=== PATIENT | male | born 1950 | race Caucasian/White ===

== ENCOUNTER → 2016-06-10 | Outpatient (CLI) | payer BC ==
--- NOTE | 2016-06-10 12:01 | XR ---
EXAMINATION TYPE: XR chest 2V DATE OF EXAM: 06/10/2016 11:52 AM COMPARISON: 09/27/10 HISTORY: Shortness of breath TECHNIQUE: Frontal and lateral views of the chest are obtained. FINDINGS: Scattered senescent parenchymal changes noted. Hyperinflation compatible with COPD. No evidence for infiltrate. No evidence for atelectasis. Heart size is stable. Mediastinal structures are stable and grossly unremarkable. No evidence for hilar prominence. Degenerative changes dorsal spine. IMPRESSION: 1. No evidence for acute pulmonary disease.
== END | disposition home or self-care (01) ==
LOC: RADXRMAIN 11:40
PROVIDERS: ATTEND Family Medicine
DX: J44.9 Chronic obstructive pulmonary disease, unspecified (principal)
CPT/HCPCS: 71020

== ENCOUNTER 2018-07-13 07:47 | Day surgery (SDC) | payer MEDICARE, OTHER ==
[2018-07-09 11:39] VITALS: BMI 28.1
[~2018-07-13 07:47] MED LIST: DEXAMETHASONE SOD PHOSPHATE 10 MG/ML 1 ML VIAL IV ONE; HEPARIN SODIUM,PORCINE 5,000 UNIT/ML 1 ML VIAL SQ ONE; LACTATED RINGERS 1,000 ML IV SCH; LIDOCAINE 1% 20 ML VIAL (10MG/ML) FOR IV START INTRADERMA PRN; MIDAZOLAM (PF) 2 MG/2 ML VIAL IV PRN; ceFAZolin IN SWFI 2 GM/20 ML SYRINGE IVP ONE; fentaNYL (PF) 50 MCG/ML 2 ML AMP IV PRN
[2018-07-13 08:29] LABS: Glucose,Whole Blood 102 mg/dL (75-99)
[2018-07-13] MEDS ORDERED: ONDANSETRON 4 MG/2 ML VIAL IVP ONE (08:30)
[2018-07-13] MEDS ORDERED: DEXAMETHASONE SOD PHOSPHATE 10 MG/ML 1 ML VIAL IV ONE (08:31)
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
[2018-07-13] MEDS ORDERED: fentaNYL (PF) 50 MCG/ML 2 ML AMP ONE (09:24)
[2018-07-13] MEDS ORDERED: LIDOCAINE 1% INJ 10MG/ML (20 ML MDV) ONE (09:24)
[2018-07-13] MEDS ORDERED: KETOROLAC 30 MG/ML 1 ML VIAL ONE (09:24)
[2018-07-13] MEDS ORDERED: PROPOFOL 10 MG/ML 20 ML VIAL IV ONE (09:24)
[2018-07-13] MEDS ORDERED: ROCURONIUM BROMIDE 10 MG/ML 10 ML VIAL IV ONE (09:24)
[2018-07-13] MEDS ORDERED: MIDAZOLAM 2 MG/2 ML VIAL ONE (09:24)
[2018-07-13] MEDS ORDERED: NEOSTIGMINE 1 MG/ML 10 ML VIAL ONE (09:24)
[2018-07-13] MEDS ORDERED: SUCCINYLCHOLINE CHLORIDE 100 MG/5 ML SYR IV ONE (09:24)
[2018-07-13] MEDS ORDERED: GLYCOPYRROLATE 0.2 MG/ML 2 ML VIAL ONE (09:24)
[2018-07-13] MEDS ORDERED: BUPIVACAIN-EPI 0.5%-1:200,000 30 ML VIAL SQ ONE (09:51)
[2018-07-13] MEDS ORDERED: LACTATED RINGERS 1,000 ML IV ONE (09:59)
--- NOTE | 2018-07-13 10:28 | P.OP ---
Date of Procedure: 07/13/18 Preoperative Diagnosis: Cholecystitis Cholelithiasis Postoperative Diagnosis: Cholecystitis Cholelithiasis Procedure(s) Performed: Laparoscopic cholecystectomy Anesthesia: MAHAMED Surgeon: Sajan Chandler Estimated Blood Loss (ml): 5 Pathology: other (Gallbladder) Condition: stable Disposition: PACU Description of Procedure: The patient was placed on the operating table. The patient received a general endotracheal tube anesthesia. The patients abdomen was prepped and draped in the usual sterile fashion. Through an infraumbilical stab incision, the fascia of the anterior abdominal wall was grasped with a pair of Kochers and then the Veress needle was placed in the peritoneal cavity. Position of the Veress needle was confirmed with positive drop test. The abdomen was then insufflated. After adequate insufflation, the 10 mm trocar was placed in the peritoneal cavity. Following this the laparoscope was placed in the peritoneal cavity. The patient was placed in the head-up, right side up position and then a 5 mm trocar was placed in the right lateral and right subcostal position under direct visualization. A 8 mm trocar was placed in the epigastric position. The gallbladder was grasped in the fundus and infundibulum. Traction on the gallbladder was placed in the lateral and the cephalad positions. The triangle of Calot was visualized.. The cystic duct was bluntly dissected until the union of the cystic duct and common bile duct was seen. The cystic duct was then divided and sealed with the Harmonic scissors. A PDS Endoloop was then placed throughout the cystic duct stump. The cystic artery divided and sealed with the Harmonic scissors. The gallbladder was then removed from the liver bed using Harmonic scissors. The gallbladder was then extracted through the epigastric port site. Operative field was checked for any bleeding spots and Harmonic scissors was used to coagulate the liver bed. The abdomen was irrigated. The trocars were removed. The skin was closed using interrupted 3-0 Vicryl suture. Dermabond dressing were applied. The patient tolerated the procedure well.
[2018-07-13 10:29] VITALS: TEMP 97.6
[2018-07-13 12:10] VITALS: BP 111/76; PULSE 81; RESP 16
== END 2018-07-13 12:35 | disposition home or self-care (01) ==
LOC: OR 07:47
PROVIDERS: ATTEND Surgery
DX: K80.10 Calculus of gallbladder with chronic cholecystitis without obstruction (principal); K21.9 Gastro-esophageal reflux disease without esophagitis; M19.90 Unspecified osteoarthritis, unspecified site; E07.9 Disorder of thyroid, unspecified; R73.03 Prediabetes; N40.0 Benign prostatic hyperplasia without lower urinary tract symptoms; F39 Unspecified mood [affective] disorder; Z79.890 Hormone replacement therapy; Z79.899 Other long term (current) drug therapy; Z88.5 Allergy status to narcotic agent; Z87.442 Personal history of urinary calculi; Z87.891 Personal history of nicotine dependence
CPT/HCPCS: 88304; 47562; J2250; J1644; J1100; J2710; J2405; J2001; J3010; J1885; J0330; J2704; J0690

== ENCOUNTER 2019-11-27 11:22 | Inpatient (IN) | payer MEDICARE ==
[2019-11-27] MEDS ORDERED: SODIUM CHLORIDE 0.9% 500 ML 500 ML IV STA (11:48)
[2019-11-27] MEDS ORDERED: MORPHINE SULFATE 4 MG/ML SYRINGE IV STA (11:48)
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
[2019-11-27 12:04] LABS: Basophils % (A) 0 %; Eosinophils # (A) 0.4 k/uL (0-0.7); Eosinophils % (A) 4 %; HCT 42.9 % (39.0-53.0); HGB 13.4 gm/dL (13.0-17.5); Lymphocytes # (A) 1.4 k/uL (1.0-4.8); Lymphocytes % (A) 12 %; MCH 28.6 pg (25.0-35.0); MCHC 31.2 g/dL (31.0-37.0); MCV 91.9 fL (80.0-100.0); Mean Platelet Volume 7.7; Monocytes # (A) 0.5 k/uL (0-1.0); Monocytes % (A) 4 %; Neutrophils # (A) 9.2 k/uL (1.3-7.7); Neutrophils % (A) 79 %; Platelet Count 260 k/uL (150-450); RBC 4.67 m/uL (4.30-5.90); RDW 12.5 % (11.5-15.5); WBC 11.7 k/uL (3.8-10.6)
[2019-11-27 12:07] LABS: Appearance,Urine Clear (Clear); Bilirubin,Urine Negative (Negative); Blood,Urine Negative (Negative); Color,Urine Yellow; Glucose,Urine (UA) Negative (Negative); Hyaline Casts,Urine 1 /lpf (0-2); Ketones,Urine Negative (Negative); Leukocyte Esterase,Urine Moderate (Negative); Mucus,Urine Rare /hpf; Nitrite,Urine Negative (Negative); PH, Urine 5.5 (5.0-8.0); Protein,Urine Negative (Negative); RBC,Urine 2 /hpf (0-5); Specific Gravity,Urine 1.026 (1.001-1.035); Squamous Epithelial Cell,Urine <1 /hpf (0-4); Urobilinogen,Urine <2.0 mg/dL (<2.0); WBC,Urine 9 /hpf (0-5)
--- NOTE | 2019-11-27 12:12 | XR ---
EXAMINATION TYPE: XR KUB DATE OF EXAM: 11/27/2019 COMPARISON: NONE HISTORY: Pain TECHNIQUE: Single supine KUB image of the abdomen is obtained FINDINGS: Mild small bowel distention which may reflect ileus. Air is seen throughout the colon to the rectosig moid level. Gas and fecal material is seen in non-distended colon. No convincing evidence for pneumoperitoneum. Static calcifications are identified. The lung bases are clear. The osseous structures are intact. IMPRESSION: 1. Overall nonobstructive bowel gas pattern.
[2019-11-27 12:17] LABS: ALT 13 U/L (4-49); AST 19 U/L (17-59); African American GFR (CKD) >90 (>60 ml/min/1.73 sqM); Albumin 3.8 g/dL (3.5-5.0); Alkaline Phosphatase 56 U/L (38-126); Amylase 49 U/L (30-110); Anion Gap 7 mmol/L; Blood Urea Nitrogen 21 mg/dL (9-20); Calcium 9.4 mg/dL (8.4-10.2); Carbon Dioxide 24 mmol/L (22-30); Chloride 105 mmol/L (98-107); Glucose 135 mg/dL (74-99); Non-African American GFR(CKD) 81 (>60 ml/min/1.73 sqM); Potassium 4.5 mmol/L (3.5-5.1); Sodium 136 mmol/L (137-145); Total Bilirubin 0.6 mg/dL (0.2-1.3); Total Protein 6.5 g/dL (6.3-8.2)
[2019-11-27 12:18] LABS: INR 0.9 (<1.2); Partial Thromboplastin Time 25.4 sec (22.0-30.0); Prothrombin Time 9.9 sec (9.0-12.0)
[2019-11-27] MEDS ORDERED: HYDROmorphone 1 MG/ML 1 ML SYRINGE IVP STA (12:39)
[2019-11-27] MEDS ORDERED: HYDROmorphone 0.5 MG/0.5 ML SYRINGE IVP STA (13:20)
--- NOTE | 2019-11-27 13:24 | CT ---
EXAMINATION TYPE: CT abdomen pelvis w con DATE OF EXAM: 11/27/2019 COMPARISON: HISTORY: mid abd pain CT DLP: 1073.6 mGycm CONTRAST: CT scan of the abdomen and pelvis is performed without Oral Contrast and with IV Contrast, patient in jected with 100 mL of Isovue 300. FINDINGS: LUNG BASES-: No visible nodule. No infiltrate. Small sliding-type hiatal hernia. LIVER/GB: Cholecystectomy clips are in place. No space occupying hepatic lesion. Biliary tree is o f normal caliber. PANCREAS: Inflammatory change suggested about the pancreatic head. Correlate for mild pancreatitis. SPLEEN: No splenic enlargement. No lesion seen. ADRENALS: No nodule. No thickening. KIDNEYS/BLADDER: No hydronephrosis. No nephrolithiasis. Renal cystic changes noted. Urinary bladder grossly unremarkable. BOWEL: Normal appendix. Normal bowel caliber. No inflammation. GENITAL ORGANS: No gross abnormality. LYMPH NODES: No greater than 1cm abdominal or pelvic lymph nodes are appreciated. AORTA: No significant abnormality. OSSEOUS STRUCTURES: No significant abnormality is seen. OTHER: No significant additional abnormality is seen. IMPRESSION: 1. Findings felt to reflect mild pancreatitis. Correlate with amylase and lipase.
[2019-11-27] MEDS ORDERED: ONDANSETRON 4 MG/2 ML VIAL IVP PRN (14:15)
[2019-11-27] MEDS ORDERED: NALOXONE 0.4 MG/ML 1 ML VIAL IV PRN (14:15)
[2019-11-27] MEDS ORDERED: PANTOPRAZOLE 40 MG/10 ML VIAL IVP STA (14:41)
[2019-11-27] MEDS: SODIUM CHLORIDE 0.9% 1,000 ML IV SCH (15:55)
[2019-11-27] MEDS: HYDROmorphone 0.5 MG/0.5 ML SYRINGE IVP PRN ×2 (18:26→21:11)
[2019-11-28] MEDS: SODIUM CHLORIDE 0.9% 1,000 ML IV SCH ×3 (00:12→16:46)
[2019-11-28] MEDS: HYDROmorphone 0.5 MG/0.5 ML SYRINGE IVP PRN (01:00)
[2019-11-28] MEDS: LEVOTHYROXINE 100 MCG TAB PO SCH (05:48)
[2019-11-28 07:28] LABS: Basophils % (A) 0 %; Eosinophils # (A) 0.2 k/uL (0-0.7); Eosinophils % (A) 2 %; HCT 38.2 % (39.0-53.0); HGB 12.8 gm/dL (13.0-17.5); Lymphocytes # (A) 1.3 k/uL (1.0-4.8); Lymphocytes % (A) 11 %; MCH 30.7 pg (25.0-35.0); MCHC 33.4 g/dL (31.0-37.0); MCV 91.9 fL (80.0-100.0); Mean Platelet Volume 8.1; Monocytes # (A) 0.7 k/uL (0-1.0); Monocytes % (A) 6 %; Neutrophils # (A) 9.1 k/uL (1.3-7.7); Neutrophils % (A) 79 %; Platelet Count 233 k/uL (150-450); RBC 4.16 m/uL (4.30-5.90); RDW 12.7 % (11.5-15.5); WBC 11.6 k/uL (3.8-10.6)
[2019-11-28] MEDS ORDERED: PANTOPRAZOLE 40 MG TABLET PO SCH (07:30)
[2019-11-28] MEDS: PANTOPRAZOLE 40 MG TABLET PO SCH (07:40)
[2019-11-28] MEDS: TAMSULOSIN 0.4 MG CAP.ER.24H PO SCH (07:40)
[2019-11-28 07:44] LABS: ALT 12 U/L (4-49); AST 17 U/L (17-59); African American GFR (CKD) >90 (>60 ml/min/1.73 sqM); Albumin 3.1 g/dL (3.5-5.0); Alkaline Phosphatase 58 U/L (38-126); Amylase 35 U/L (30-110); Anion Gap 4 mmol/L; Blood Urea Nitrogen 15 mg/dL (9-20); Calcium 8.2 mg/dL (8.4-10.2); Carbon Dioxide 27 mmol/L (22-30); Chloride 104 mmol/L (98-107); Glucose 98 mg/dL (74-99); Non-African American GFR(CKD) 84 (>60 ml/min/1.73 sqM); Potassium 4.7 mmol/L (3.5-5.1); Sodium 135 mmol/L (137-145); Total Bilirubin 0.9 mg/dL (0.2-1.3); Total Protein 5.3 g/dL (6.3-8.2)
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
--- NOTE | 2019-11-28 10:01 | US ---
EXAMINATION TYPE: US abdomen complete DATE OF EXAM: 11/28/2019 COMPARISON: CT 11/27/2019 CLINICAL HISTORY: abd. pain. GB removed x many years ago. Patient states having pancreatitis EXAM MEASUREMENTS: Liver Length: 13.3 cm CBD: 0.9 cm Spleen: 10.3 cm Right Kidney: 9.6 x 4.3 x 4.5 cm Left Kidney: 10.7 x 4.8 x 5.8 cm Pancreas: Echogenic in appearance. Tail obscured by overlying bowel gas Liver: Limited visualization, scanned intercostally due to bowel gas there is a coarse echotexture Gallbladder: Surgically absent Evidence for sonographic Connolly's sign: neg CBD: wnl Spleen: wnl Right Kidney: Lower lateral pole cystic lesion - 1.6 x 1.9 x 1.6 cm Left Kidney: Two cystic lesions seen. 1- mid anterior = 1.5 x 1.5 x 1.5 cm. 2- lower = 1.5 x 1.4 x 1.4 cm Upper IVC: wnl Abd Aorta: Portions obscured by overlying bowel gas. No AAA visualized. There is no ascites. IMPRESSION: Abnormal findings seen on CT are not seen on current ultrasound. Correlate for possible h epatic steatosis. Dilated common bile duct likely due to postcholecystectomy change. There are cortic al cysts associated with the kidneys.
--- NOTE | 2019-11-28 10:03 | CONS ---
CONSULTATION DATE OF CONSULTATION: 11/28/2019 REQUESTING PHYSICIAN: Dr. Gomez. REASON FOR CONSULTATION: Diffuse abdominal pain. HISTORY OF PRESENT ILLNESS: The patient is a 69-year-old pleasant white male who came to the emergency room complaining of severe right-sided abdominal pain that started yesterday morning. The pain continued to progressively get worse and radiated diffusely all over the abdomen, mostly in the periumbilical area and epigastric area radiating to the lower abdominal area. He had some nausea but no emesis. No significant change in his bowel habits. No fever, chills, or night sweats. Never had these symptoms in the past. He came to the emergency room, had a CT of the abdomen and pelvis done that showed mild inflammation in the pancreas. The patient never had prior history of pancreatitis. He has longstanding history of GERD and has been on Prilosec 20 mg daily. He has been taking Motrin every night for arthritis. No prior history of peptic ulcer disease. Last colonoscopy was more than 7 years ago and according to the patient was normal. PAST MEDICAL HISTORY: Anxiety, GERD, hypothyroidism. PAST SURGICAL HISTORY: Cholecystectomy, hernia repair, colonoscopy about 7 years ago. MEDICATIONS: Medications at home include Flomax, Prilosec, Xanax, levothyroxine. ALLERGIES: DEMEROL. SOCIAL HISTORY: Former smoker, no alcohol use. FAMILY HISTORY: Brother with coronary artery disease and diabetes. Mother with stomach cancer. Father with congestive heart failure. REVIEW OF SYSTEMS: CARDIOPULMONARY: No chest pain, shortness of breath : No dysuria or hematuria. MUSCULOSKELETAL unremarkable. SKIN: Unremarkable. ENDOCRINE: Unremarkable. PSYCHIATRIC: Unremarkable. NEUROLOGY: Unremarkable. ENT/VISION: Unremarkable. CONSTITUTIONAL: No recent weight loss. No fever, chills, night sweats. PHYSICAL EXAMINATION: Appears comfortable, no apparent distress. Vital signs stable with blood pressure 112/67, pulse rate 69, temperature 98.1. HEENT: Examination unremarkable. Conjunctivae pink. Sclerae anicteric. Oral cavity no lesions. NECK: No JVD or lymph node enlargement. CHEST: Chest was clear to auscultation. HEART: Regular rate and rhythm. ABDOMEN: Soft, bowel sounds are positive. No organomegaly. There was no tenderness noted. EXTREMITIES: No pedal edema. SKIN: No rashes. NEUROLOGIC: Alert and oriented x3. No focal deficits. LABS: WBC 11.6, hemoglobin 12.8, platelets normal. Basic metabolic panel is within normal limits. Amylase and lipase are normal. CT of the abdomen showed evidence of cholecystectomy and mild pancreatitis. IMPRESSION: 1. This is a patient who presents to the hospital with right-sided abdominal pain radiating to diffusely all of the abdomen that started yesterday morning with no significant nausea, vomiting, diarrhea or constipation. No rectal bleeding. CT scan showed mild pancreatitis. Amylase and lipase are normal. No history of alcohol use. At this time, etiology of abdominal pain remains unclear. Rule out peptic ulcer disease because of regular NSAID use. Rule out lower gastrointestinal pathology. 2. History of hypertension. 3. History of gastroesophageal reflux disease. RECOMMENDATIONS: 1. Continue with a clear liquid diet. 2. Protonix 40 mg daily. 3. We will proceed with EGD, colonoscopy. Discussed with the patient and he is agreeable to it. Thank you for this consultation. MMKRISTIEL / SUKHJINDERN: [id number] /
[2019-11-28] MEDS ORDERED: PEG 3350-NA SULF,BICARB,CL/KCL 4,000 ML BOTTLE PO ONE (16:00)
[2019-11-28] MEDS: ALPRAZolam 0.5 MG TAB PO SCH (20:16)
[2019-11-29] MEDS: SODIUM CHLORIDE 0.9% 1,000 ML IV SCH ×2 (06:32→19:55)
[2019-11-29] MEDS: LEVOTHYROXINE 100 MCG TAB PO SCH (06:33)
[2019-11-29 08:16] LABS: ALT 11 U/L (4-49); AST 16 U/L (17-59); African American GFR (CKD) >90 (>60 ml/min/1.73 sqM); Albumin 3.1 g/dL (3.5-5.0); Alkaline Phosphatase 64 U/L (38-126); Amylase 34 U/L (30-110); Anion Gap 7 mmol/L; Blood Urea Nitrogen 13 mg/dL (9-20); Calcium 8.3 mg/dL (8.4-10.2); Carbon Dioxide 25 mmol/L (22-30); Chloride 106 mmol/L (98-107); Glucose 78 mg/dL (74-99); Non-African American GFR(CKD) 83 (>60 ml/min/1.73 sqM); Potassium 3.9 mmol/L (3.5-5.1); Sodium 138 mmol/L (137-145); Total Protein 5.5 g/dL (6.3-8.2)
[2019-11-29] MEDS ORDERED: IV FLUID CONTINUATION 1,000 ML IV ONE (08:27)
[2019-11-29] MEDS ORDERED: LIDOCAINE 1% INJ 10MG/ML (20 ML MDV) ONE (08:29)
[2019-11-29] MEDS ORDERED: PROPOFOL 10 MG/ML 20 ML VIAL IV ONE (08:29)
--- NOTE | 2019-11-29 08:51 | P.PCN ---
Date of Procedure: 11/29/19 Description of Procedure: BRIEF HISTORY: Patient is a 69-year-old male presenting to the hospital with abdominal pain and found to have mild pancreatitis on computed tomography scan of the abdomen. Was scheduled for EGD and colonoscopy but was unable to have bowel movements and had worsening abdominal pain with the bowel prep, likely related to ileus. PROCEDURE PERFORMED: Esophagogastroduodenoscopy with biopsy. PREOPERATIVE DIAGNOSIS: Abdominal pain. ESTIMATED BLOOD LOSS: Minimal. IV sedation per anesthesia. PROCEDURE: After informed consent was obtained, the patient was brought into the endoscopy unit. IV sedation was administered by Anesthesia under continuous monitoring. Initially the Olympus GIF-190 video endoscope was inserted into the mouth. Esophagus intubated without any difficulty. It was gradually advanced into the stomach and duodenum and carefully examined. The bulb and the second part of the duodenum appeared normal, with biopsies taken. The scope at this time was withdrawn to the stomach, adequately insufflated with air, and upon careful exam ination, mucosa of the antrum, body, cardia and the fundus appeared normal, except for some mild scattered erythema in the antrum and body suggestive of mild gastritis with biopsies taken. The scope was then withdrawn into the esophagus. The GE junction was located at 38 cm from the incisors, with biopsies of the GE junction taken and a small 1 cm hiatal hernia noted. The esophagus appeared normal. There were no erosions or ulcerations seen and the patient tolerated the procedure well. IMPRESSION: 1. Mild gastritis antrum and body, biopsied. 2. Small hiatal hernia. 3. Biopsies of GE junction and duodenum. RECOMMENDATIONS: The findings of this examination were discussed with the patient . Okay for diet, clear liquids, advance as tolerated. Continue treatment for suspected pancreatitis given CT findings of inflammation of the pancreas. Not appropriate to perform colonoscopy in the setting of possible ileus with patient experiencing worsening abdominal pain on attempted bowel prep and would recommend discharge when clinically improved with follow-up in the next 1-2 weeks for outpatient colonoscopy.
[2019-11-29] MEDS ORDERED: NA PHOS,M-B/NA PHOS,DI-BA 133 ML ENEMA RECTAL STA (08:56)
[2019-11-29] MEDS: TAMSULOSIN 0.4 MG CAP.ER.24H PO SCH (09:01)
[2019-11-29] MEDS: PANTOPRAZOLE 40 MG TABLET PO SCH (09:01)
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
--- NOTE | 2019-11-29 14:38 | P.PN ---
Subjective Progress Note Date: 11/29/19 This is a 69-year-old gentleman with a past medical history for GERD, ARTHRITIS, hypothyroid, BPH who is a patient of Dr. Gomez. Patient presented to the emergency room with complaints of right-sided abdominal pain radiating across mid abdomen and periumbilical region. Patient states that he woke up with the discomfort and progressively got worse over the next 16 hours. Patient states that he has been under stress recently with the recent loss of his brother. Patient states he did not have regular bowel movements his last one was yesterday however with small. Denied any nausea or vomiting diarrhea. Denies any fever or chills. Pain does not radiate to the back or shoulder. CAT scan revealed mild pancreatitis although his enzymes do not correlate with this amylase and lipase are within normal limits. At this time patient is sitting up in bed in no acute distress. Patient denies any abdominal discomfort at this time. No nausea or vomiting or diarrhea. Patient states that he has never had this pain before in the past. Last year he had a cholecystectomy performed by Dr. Campuzano and previously had hernia repair also performed by Dr. Campuzano. 11/28: Yesterday, patient underwent EGD with biopsy with Dr. Reid. Findings were mild gastritis in the antrum and body. Small hiatal hernia. Biopsies of the GE junction and duodenum and antrum. The patient is drinking GoLYTELY today but Dr. Reid does not intend to do colonoscopy. We will ask for Dr. Flores to see the patient as he has done a cholecystectomy in the patient in the past. Patient continues to have abdominal pain today in the lower abdomen. It is sore to touch. His abdomen is distended. Fleets enema will be ordered. He states he is passing a little bit of gas. Patient is afebrile, heart rate 79, blood pressure 109/69, pulse ox 96% on room air. Repeat electrolytes renal function w ithin normal limits. Review Of Systems: Constitutional: No fever, no chills, no night sweats. No weight change. No weakness, fatigue or lethargy. No daytime sleepiness. EENT: No headache. No blurred vision or double vision, no loss of vision. No loss of Hearing, no ringing in the ears, no dizziness. No nasal drainage or congestion. No epistaxis. No sore throat. Lungs: No shortness of breath, cough, no sputum production. No wheezing. Cardiovascular: No chest pain, no lower extremity edema. No palpitations. No paroxysmal nocturnal dyspnea. No orthopnea. No lightheadedness or dizziness. No syncopal episodes. Abdominal: Reports abdominal pain. No nausea, vomiting. no diarrhea. No constipation. No bloody or tarry stools. no loss of appetite. Genitourinary: No dysuria, increased frequency, urgency. No urinary retention. Musculoskeletal: No myalgias. No muscle weakness, no gait dysfunction, no frequent falls. No back pain. No neck pain. Integumentary: No wounds, no lesions. No rash or pruritus. No unusual bruising. No change in hair or nails. Neurologic: No aphasia. No facial droop. No change in mentation. No head injury. No headache. No paralysis. No paresthesia. Psychiatric: No depression. No anxiety. No mood swings. Endocrine: No abnormal blood sugars. No weight change. No excessive sweating or thirst. Physical examination General Appearance: Alert, cooperative, no distress, 69-year-old appears younger than stated age. Neck HEENT: Supple, no lymphadenopathy, no thyroid enlargement, no carotid bru its. Lungs: Clear to auscultation without crackles or wheezes no rhonchi, no deformity. Chest Wall: Chest wall normal expansion with deep inspiration no tenderness and no deformity was found on exam, no costochondral pain or discomfort. Heart: Regular rate and rhythm, S1, S2 normal, no murmur, rub or gallop. Back: Symmetric, no curvature, ROM normal, no CVA tenderness. Abdomen: Soft, bilateral lower abdominal quadrant tenderness, no rebound or rigidity, no hepatosplenomegaly. Extremities: Extremities normal, atraumatic, no cyanosis or edema. Pulses: 2+ and symmetric. Skin: Skin color, texture, tugor normal, no rashes or lesions. Neurologic: Alert oriented x3 cranial nerves II through XII intact, no motor deficit, no abnormal balance or gait Assessment and plan 1. Acute pancreatitis versus subacute pancreatitis questionable chronic common duct stone. Findings on CAT scan but amylase and lipase have been normal. EGD as above. Consult with Dr. Chandler for abdominal pain and possible colonoscopy. 2. Abdominal pain with nausea. Zofran 4 mg IV every 8 hours as needed 3. BPH tamsulosin 0.4 mg by mouth daily 4. Hypothyroidism Synthroid 100 g by mouth daily 5. GERD Protonix 40 mg 6. DVT prophylaxis: Ambulation 7. GI prophylaxis Protonix 40 mg before meals at breakfast 8. Code 19 infection not present. Discharge plan: Home Impression and plan of care have been directed as dictated by the signing physician. Verito Dhillon nurse practitioner acting as scribe for signing physician. Objective - Vital Signs Vital signs: Vital Signs Temp 98.5 F 11/29/19 07:00 Pulse 79 11/29/19 07:00 Resp 16 11/29/19 07:00 BP 109/69 11/29/19 07:00 Pulse Ox 96 11/29/19 07:00 Intake & Output 11/28/19 11/29/19 11/29/19 18:59 06:59 18:59 Intake Total 700 100 Balance 700 100 Intake: IV 100 Intake, IV Titration 700 Amount Sodium Chloride 0.9% 1, 700 000 ml @ 100 mls/hr IV . Q10H [facility] Rx#:[id number] Other: Voiding Method Toilet Toilet # Voids 2 - Labs CBC & Chem 7: 11/28/19 06:54 11/29/19 06:42 Labs: Abnormal Lab Results - Last 24 Hours (Table) 11/29/19 Range/Units 06:42 Calcium 8.3 L (8.4-10.2) mg/dL AST 16 L (17-59) U/L Total Protein 5.5 L (6.3-8.2) g/dL Albumin 3.1 L (3.5-5.0) g/dL
[2019-11-29] MEDS: ALPRAZolam 0.5 MG TAB PO SCH (21:58)
[2019-11-30] MEDS: LEVOTHYROXINE 100 MCG TAB PO SCH (05:24)
[2019-11-30] MEDS: SODIUM CHLORIDE 0.9% 1,000 ML IV SCH (05:24)
[2019-11-30 07:42] VITALS: BP 112/65; PULSE 66; RESP 18; TEMP 98.3
--- NOTE | 2019-11-30 08:53 | P.DS ---
Providers Date of admission: 11/27/19 14:15 Expected date of discharge: 11/30/19 Attending physician: Delonte Lisa Consults: 11/27/19 14:40 Consult Physician Routine Consulting Provider: Chanell Ocampo Consult Reason/Comments: Abdominal pain, possible pancreatitis Do you want consulting provider notified?: Yes 11/29/19 09:04 Consult Physician Routine Consulting Provider: Sajan Chandler Consult Reason/Comments: recurrent abd pain, colonoscopy Do you want consulting provider notified?: Yes Primary care physician: [facility] Course: This is a 69-year-old gentleman with a past medical history for GERD, ARTHRITIS, hypothyroid, BPH who is a patient of Dr. Gomez. Patient presented to the emergency room with complaints of right-sided abdominal pain radiating across mid abdomen and periumbilical region. Patient states that he woke up with the discomfort and progressively got worse over the next 16 hours. Patient states that he has been under stress recently with the recent loss of his brother. Patient states he did not have regular bowel movements his last one was yesterday however with small. Denied any nausea or vomiting diarrhea. Denies any fever or chills. Pain does not radiate to the back or shoulder. CAT scan revealed mild pancreatitis although his enzymes do not correlate with this amylase and lipase are within normal limits. At this time patient is sitting up in bed in no acute distress. Patient denies any abdominal discomfort at this time. No nausea or vomiting or diarrhea. Patient states that he has never had this pain before in the past. Last year he had a cholecystectomy performed by Dr. Campuzano and previously had hernia repair also performed by Dr. Campuzano. 11/28: Yesterday, patient underwent EGD with biopsy with Dr. Reid. Findings were mild gastritis in the antrum and body. Small hiatal hernia. Biopsies of the GE junction and duodenum and antrum. The patient is drinking GoLYTELY today but Dr. Reid does not intend to do colonoscopy. We will ask for Dr. Flores to see the patient as he has done a cholecystectomy in the patient in the past. Patient continues to have abdominal pain today in the lower abdomen. It is sore to touch. His abdomen is distended. Fleets enema will be ordered. He states he is passing a little bit of gas. Patient is afebrile, heart rate 79, blood pressure 109/69, pulse ox 96% on room air. Repeat electrolytes renal function within normal limits. 11/29: Patient was seen by Dr. Chandler with no plan for any intervention. No plan for colonoscopy. Patient did have significant bowel movement after drinking GoLYTELY. He denies having any nausea or vomiting. He is tolerating diet. He denies any abdominal pain at all. He is anxious to be discharged home. He has been afebrile, heart rate 66, blood pressure 112/65, pulse ox 93% on room air. Patient will be discharged home today in stable condition. Assessment and plan 1. Acute pancreatitis versus subacute pancreatitis questionable chronic common duct stone. 2. Abdominal pain with nausea, resolved. 3. BPH. 4. Hypothyroidism. 5. GERD. 6. COVID-19 infection not present. 7. No peritonitis. Discharge plan: Home Impression and plan of care have been directed as dictated by the signing physician. Verito Dhillon nurse practitioner acting as scribe for signing physician. Patient Condition at Discharge: Good Plan - Discharge Summary Discharge Rx Participant: No New Discharge Prescriptions: Continue ALPRAZolam [Xanax] 2 mg PO HS Omeprazole [PriLOSEC] 20 mg PO QAM Tamsulosin HCl [Flomax] 0.4 mg PO DAILY Levothyroxine Sodium 100 mcg PO DAILY Discharge Medication List ALPRAZolam [Xanax] 2 mg PO HS 07/09/18 [History] Omeprazole [PriLOSEC] 20 mg PO QAM 07/09/18 [History] Tamsulosin HCl [Flomax] 0.4 mg PO DAILY 07/09/18 [History] Levothyroxine Sodium 100 mcg PO DAILY 11/27/19 [History] Follow up Appointment(s)/Referral(s): Juma Gomez DO [Primary Care Provider] - 12/09/19 8:45 am Patient Instructions/Handouts: Gastritis (DC) Discharge Disposition: HOME SELF-CARE
--- NOTE | 2019-12-01 11:55 | CDI ---
Documentation Clarification Form Date: 12/01/19 From: Margaret Shah Phone: If you have a question about this query, please contact Rachelle Lipscomb, Food Production Worker at [phone] between 8am and 5pm. Admit Date: 11/27/19 Discharge Date:11/30/19 Patient Name: Kwasi Villalobos Visit Number: [id number] ATTENTION: The Clinical Documentation Specialists (CDI) and [facility] Coding Staff appreciate your assistance in clarifying documentation. Please respond to the clarification below the line at the bottom and electronically sign. The CDI & [facility] Coding staff will review the response and follow-up if needed. Please note: Queries are made part of the Legal Health Record. If you have any questions, please contact the author of this message via ITS. Dear Dr. Lisa The diagnosis resolving peritonitis was documented Dr. Chandler's consult note, but is not noted in subsequent documentation. Dr. Chandler documented that the patient was worked up and found evidence of peritonitis. History/Risk Factors: History of cholecystectomy and hernia repair, questionable chronic common bile duct stone Clinical Indicators: Abdominal pain, abdominal distention Lab: Amylase and lipase normal EGD: Mild gastritis antrum and body, small hiatal hernia Treatment: IV Dilaudid, 1 liter NS bolus then at 100 mls/hr Please clarify if the peritonitis was Present/active this admission Treated and resolved this admission Ruled out Other, please specify Clinically unable to determine MTDD
== END 2019-11-30 09:39 | disposition home or self-care (01) | DRG 440 ==
LOC: EC 11:22 → 4SSUR 14:15 → UNDOADMOB 14:15 → 1SOBS 14:15
PROVIDERS: ADMIT Internal Medicine Geriatric Medicine; ATTEND Internal Medicine Geriatric Medicine
PROC: 0DB68ZX Excision of Stomach, Via Natural or Artificial Opening Endoscopic, Diagnostic (ICD-10-PCS; principal; 2019-11-29 07:50)
PROC: 0DB48ZX Excision of Esophagogastric Junction, Via Natural or Artificial Opening Endoscopic, Diagnostic (ICD-10-PCS; principal; 2019-11-29 07:50)
PROC: 0DB98ZX Excision of Duodenum, Via Natural or Artificial Opening Endoscopic, Diagnostic (ICD-10-PCS; principal; 2019-11-29 07:50)
PROC: 0DB78ZX Excision of Stomach, Pylorus, Via Natural or Artificial Opening Endoscopic, Diagnostic (ICD-10-PCS; principal; 2019-11-29 07:50)
DX: K85.90 Acute pancreatitis without necrosis or infection, unspecified (principal); K80.50 Calculus of bile duct without cholangitis or cholecystitis without obstruction; E03.9 Hypothyroidism, unspecified; I10 Essential (primary) hypertension; K21.9 Gastro-esophageal reflux disease without esophagitis; K29.70 Gastritis, unspecified, without bleeding; K44.9 Diaphragmatic hernia without obstruction or gangrene; M19.90 Unspecified osteoarthritis, unspecified site; N40.0 Benign prostatic hyperplasia without lower urinary tract symptoms; F41.9 Anxiety disorder, unspecified; R73.03 Prediabetes; Z11.59 Encounter for screening for other viral diseases; Z79.890 Hormone replacement therapy; Z79.899 Other long term (current) drug therapy; Z87.442 Personal history of urinary calculi; Z87.891 Personal history of nicotine dependence; Z90.49 Acquired absence of other specified parts of digestive tract; Z80.0 Family history of malignant neoplasm of digestive organs; Z82.49 Family history of ischemic heart disease and other diseases of the circulatory system; Z82.5 Family history of asthma and other chronic lower respiratory diseases; Z83.3 Family history of diabetes mellitus
CPT/HCPCS: 36415; 43239; 74018; 74177; 76700; 80053; 81001; 82150; 83605; 83690; 85025; 85610; 85730; 88305; 96361; 96374; 96375; 99285

== ENCOUNTER → 2021-10-03 | Outpatient (CLI) | payer MEDICARE ==
--- NOTE | 2021-10-03 12:30 | CT ---
EXAMINATION TYPE: CT abdomen wo/w con DATE OF EXAM: 10/03/2021 COMPARISON: CT abdomen and pelvis November 27, 2019 HISTORY: Abdominal pain generalized CT DLP: 1379 mGycm Automated exposure control for dose reduction was used. TECHNIQUE: Helical acquisition of images was performed from the lung bases through the top of iliac crest to include entire abdomen. CONTRAST: Performed with Oral Contrast and without and with IV Contrast, patient injected with 100 ml mL of Iso augusta 300. FINDINGS: LUNG BASES: No significant abnormality is appreciated. LIVER/GB: Cholecystectomy clip is redemonstrated. PANCREAS: No significant abnormality is seen. SPLEEN: . There is occasional punctate calcification redemonstrated scattered throughout the spleen c onsistent with product of old granulomatous disease. ADRENALS: No significant abnormality is seen. KIDNEYS: Noncontrast images show no renal calculi bilaterally. Postcontrast images show symmetric cor tical medullary uptake and excretion without hydronephrosis seen bilaterally. There are a few scatter ed simple-appearing thin-walled cysts redemonstrated throughout both kidneys. There is exophytic hype rdense round 1.6 cm lesion laterally left kidney upper to midpole level coronal image 52 consistent w ith hemorrhagic or proteinaceous cyst redemonstrated. 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 Prior CT shows fusion right before bladder insertion of the duplicated collecting systems and proximal ureters. BOWEL: Oral contrast is seen throughout scattered small bowel loops in the abdomen. Oral contrast tomas s passed from stomach making evaluation suboptimal. The fundus and body have moderate to severe gastr ic fold prominence. This was also prominent to a lesser degree on prior CT. Some scattered colonic di verticula particularly in the left and transverse colon. No suspicious small or large bowel dilatatio n. Terminal ileum is contrast-filled and appears within normal limits. LYMPH NODES: No significant abnormality is seen. OSSEOUS STRUCTURES: Vacuum disc phenomenon with mild to moderate disc space narrowing and mild anter ior spurring L3-L4 level is redemonstrated. Moderate anterior and lateral spurring in the lower thora cic spine is again seen. Single sclerotic focus T10 vertebra coronal image 69 is redemonstrated favor benign bone island. FREE AIR: No free air is visualized. OTHER: [id number] peripheral atherosclerotic change in slightly ectatic abdominal aorta without greater than 3.0 cm aneurysm. IMPRESSION: 1. No bowel obstruction. Possible at least moderate fairly diffuse gastritis throughout the fundus an d body. Correlate clinically. Consider endoscopy to further evaluate.
== END | disposition home or self-care (01) ==
LOC: RADCTMAIN 06:51
PROVIDERS: ATTEND Family Medicine
DX: R10.84 Generalized abdominal pain (principal)
CPT/HCPCS: 82565; 84520; 74170; 36415; Q9967

== ENCOUNTER 2022-03-26 09:17 | Day surgery (SDC) | payer MEDICARE ==
[2022-03-26] MEDS ORDERED: LIDOCAINE 1% (10MG/ML) FOR IV START INTRADERMA PRN (09:38)
[2022-03-26] MEDS ORDERED: LACTATED RINGERS 1,000 ML IV SCH (09:38)
[2022-03-26 09:53] VITALS: RESP 16; TEMP 97.2
[2022-03-26 09:57] LABS: Glucose,Whole Blood 89 mg/dL (70-110)
[2022-03-26] MEDS ORDERED: PROPOFOL 10 MG/ML 20 ML VIAL IV ONE (10:16)
[2022-03-26] MEDS ORDERED: LIDOCAINE 2% INJ 20 MG/ML (2 ML VIAL) ONE (10:16)
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
--- NOTE | 2022-03-26 10:34 | P.PCN ---
Date of Procedure: 03/26/22 Procedure(s) Performed: Preoperative Dx: GERD, history of Capellan's esophagus Postoperative Dx: Gastritis, Capellan's esophagus, small hiatal hernia Procedure: EGD with Bx Anesthesia: Sedation Endoscopist: Dr. Moise Specimens: Antrum, Capellan's esophagus Endoscopic Procedure: The patient was on the endoscopy table in the left decubitus position. The Olympus gastroscope was inserted into the oropharynx and passed under direct visualization to the region of the third portion of the duodenum. From that point the scope was slowly withdrawn inspecting all surfaces carefully. There were no neoplastic inflammatory or polypoid lesions throughout the duodenum. The pylorus was widely patent. The stomach was carefully inspected. There was mild gastritis present. A biopsy of the antrum took place to rule out H. pylori. Retroflexion revealed a small sliding hiatal hernia. Above the GE junction there was a 1.5 cm linear segment of Capellan's esophagus. Biopsies were taken. The remainder the esophagus appear normal. The patient was then taken to the recovery room in stable condition per anesthe james guidelines. Recommendations: Await biopsy results. Repeat EGD 3 years.
[2022-03-26 10:56] VITALS: BP 133/89; PULSE 78
== END 2022-03-26 11:25 | disposition home or self-care (01) ==
LOC: ORWHC2ENDO 09:17
PROVIDERS: ATTEND Surgery
DX: K29.50 Unspecified chronic gastritis without bleeding (principal); K44.9 Diaphragmatic hernia without obstruction or gangrene; K22.70 Barrett's esophagus without dysplasia; Z87.891 Personal history of nicotine dependence; M19.90 Unspecified osteoarthritis, unspecified site; J44.9 Chronic obstructive pulmonary disease, unspecified; K21.00 Gastro-esophageal reflux disease with esophagitis, without bleeding; Z82.49 Family history of ischemic heart disease and other diseases of the circulatory system
CPT/HCPCS: 88305; 43239; J2704; J2001

== ENCOUNTER → 2022-04-29 | Outpatient (CLI) | payer MEDICARE ==
--- NOTE | 2022-05-02 11:21 | US ---
EXAMINATION TYPE: US arterial LE single level DATE OF EXAM: 04/29/2022 2:11 PM CLINICAL HISTORY: PAD I73.9. Left foot intermittently colder than right Doppler Waveforms: Right: Multiphasic Left: Multiphasic Ankle-Brachial Indices: Right: 1.2 Left: 1.0 Toe Brachial Indices: Right: 0.72 Left: 0.72 IMPRESSION: 1. Normal bilateral TAHMINA and TBI indices.
== END | disposition home or self-care (01) ==
LOC: RADUSWWP 13:31
PROVIDERS: ATTEND Family Medicine
DX: I73.9 Peripheral vascular disease, unspecified (principal)
CPT/HCPCS: 93922